=== PATIENT | female | born 1975 | race Native Hawaiian/Other Pacific Islander ===

== ENCOUNTER 2017-12-17 11:09 | Emergency (ER) | payer OTHER ==
[~2017-12-17] VITALS: Ht 149.9 cm; Wt 46.3 kg
--- NOTE | 2017-12-17 11:25 | NUR ---
Dr Ko at the bedside for MSE.
--- NOTE | 2017-12-17 12:10 | NUR ---
Patient discharged to home in stable conditon. Written and verbal after care instructions given. Patient verbalizes understanding of instructions.
[2017-12-17 12:12] VITALS: BP 112/75
== END 2017-12-17 12:12 | disposition home or self-care (01) ==
LOC: ER 11:09
DX: S63.502A Unspecified sprain of left wrist, initial encounter (principal); S60.212A Contusion of left wrist, initial encounter; X50.1XXA Overexertion from prolonged static or awkward postures, initial encounter; Y93.89 Activity, other specified; Y92.89 Other specified places as the place of occurrence of the external cause; Y99.8 Other external cause status
CPT/HCPCS: 73100; 73120; A4663